=== PATIENT | female | born 1980 | race Caucasian/White ===

== ENCOUNTER → 2018-04-11 11:37 | Outpatient (CLI) | payer OTHER, SELFPAY ==
--- NOTE | 2018-04-11 | DI.US.S_ITS ---
PROCEDURE: US PELVIC COMPLETE INDICATIONS: MENSTRUAL CRAMPS TECHNIQUE: Real-time scanning was performed of the pelvic organs, with image documentation. Additional endovaginal scanning was necessary due to incomplete visualization of the adnexal and endometrial structures by transabdominal scanning. COMPARISON: None. FINDINGS: Transabdominal scanning: Limited scanning through the kidneys shows no hydronephrosis. The the kidneys measure 10.6 CM right and 11.6 CM left. No pathologic free abdominal or pelvic fluid. Endovaginal scanning: Uterus: Uterus is normal in size at 4.1 x 5.0 x 8.4 cm. The endometrium measures 8.0 mm in combined thickness. Ovaries: The right ovary measures 19 x 22 x 35 mm and contains a simple cyst measuring 12 x 13 x 13 mm. The left ovary measures 18 x 26 x 37 mm and contains a simple cyst measuring 15 x 20 x 22 mm. IMPRESSION: Normal exam with bilateral simple follicular cysts Dictated by: Edouard Shukla M.D. on 04/11/2018 at 12:56 Approved by: Edouard Shukla M.D. on 04/11/2018 at 13:01
== END ==
PROVIDERS: PCP Nurse Practitioner Family; Visit Provider Nurse Practitioner Family
DX: N94.6 Dysmenorrhea, unspecified (principal); N83.292 Other ovarian cyst, left side; N83.291 Other ovarian cyst, right side
CPT/HCPCS: 76856

== ENCOUNTER 2018-05-21 10:30 | Outpatient (RCR) | payer OTHER, SELFPAY ==
--- NOTE | 2018-04-09 15:36 | PT.OIE ---
Current Diagnoses Stiffness of unspecified hip, not elsewhere classified (04/09/18) Mixed incontinence (04/09/18) Pelvic muscle wasting (04/09/18) Past Medical History (Last Updated 04/09/18 @ 15:28 by Renetta John, PT) Thyroid activity decreased (Resolved) Provider Visit Care Team Role Provider Type AGNES Hamilton Attending Provider Advanced Systems Administrator Primary Care Provider Specialty: Medical Address: [address] [place] [address], [facility] Email: Physical Therapy Initial Evaluation PT-OP-A Visit Information Start: 04/09/18 12:30 Freq: Status: Active Protocol: Document 04/09/18 12:50 LRN (Rec: 04/09/18 14:28 LRN [id number]) Out-Patient Physical Therapy Visit Information Visit Information Visit Type Initial Evaluation Visit Note 09/08 Visit Start Time 12:50 Visit Stop Time 13:40 Total Visit Minutes 50 Visit Number 1 Number of [employer]CREW[employer] Visits 0 Evaluation Information Evaluation Date 04/09/18 PT-OP-B Current Condition Start: 04/09/18 12:30 Freq: Status: Active Protocol: Document 04/09/18 12:50 LRN (Rec: 04/09/18 14:28 LRN [id number]) Current Condition History of Current Condition Onset Date 01/14/2008 Current Complaints Urinary Leakage History of Current Condition Pt reports that after the childbirth of her 2nd child in 2007 she began to notice urinary leakage. She has 2 children with the 1st born 20/02, thus children are 10 and 11 yrs old. Both Children were vaginal births. She had 3rd or 4th degree tearing with the first child and minimal tearing with the 2nd child. Her leakage is mainly small, but she has experienced complete incontinence of urine. Prior Treatments and Tests None. Future Testing and Treatments Planned None Treatment Goals Patient/Caregiver Goals Pt goal is to gain enough control to exercise more vigorously without worrying about it. Prior Functional Status Baseline Function- ADL's Independent Baseline Function- Mobility Independent Baseline Function- Other Urinates 10+ times a day and sometimes 1 time at night. Urinary leakage 3 times per day. Drinks 4 glasses fluid per day (2 caffeinated and 2 achoholic). No urge sensation. Urinary trigger: Thinking about it. Current Functional Impairments (Reported) Functional Limitations- ADL's Leaks after urinating upon standing. Leaks after urinating upon bend over. Functional Limitations- Recreation/ Lacking core strength for Hobbies Pilates & yoga Leakage prevents her from running, doing Pilates & Yoga. Personal Factors Other Personal Factors That May Effect Works 40 hrs per week. 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 Lives [place] and works locally in [place], works 2x/month in [employer]. PT-OP-C Subjective Start: 04/09/18 12:30 Freq: Status: Active Protocol: Document 04/09/18 12:50 LRN (Rec: 04/09/18 14:28 LRN [id number]) Patient Questionnaires Pelvic Pain and Urgency/Frequency Patient Symptom Scale Pelvic Pain Score 16 PT-OP-I Pelvic Floor Start: 04/09/18 12:30 Freq: Status: Active Protocol: Document 04/09/18 12:50 LRN (Rec: 04/09/18 14:28 LRN [id number]) Pelvic Floor Assessment Urine Urinary Symptoms Prolapse Dribbling After Urination Other Urinary Symptoms Leakage with vigorous activity or ex or changing positions. Urinates 10+ times a day. Leaks after voiding when standing. Leakage Size Small Leakage Cause Exercise Other Leakage Causes Change of position from sit to stand Leaks Per Day 3 Voiding Frequency 10+ Nocturia No Urine Pad Type Panty Liner Bowel Bowel Surgery No Pelvic Clock Pelvic Clock 12-3 Atrophy Pelvic Clock 3-6 Atrophy Pelvic Clock 6-9 Atrophy Pelvic Clock 9-12 Hypertonic Tenderness Tightness Pelvic Clock Other Primary pain is at 12 O'Clock Prolapse Cystocele Grade 2 Rectocele Grade 2 Prolapse Comments Prolapse checked in Supine. Grade 3 in standing. Perineal Descent Bearing Present Contraction Ability Voluntary Contraction Weak Manual Muscle Testing Left 0 Manual Muscle Testing Right 0 Manual Muscle Testing Anterior 0 Manual Muscle Testing Posterior 1 Muscle Endurance (Seconds) 0 Comments Pelvic Floor Comments Quick Contractions: NO contraction felt. PT-OP-J Posture/Palpation/Skin Start: 04/09/18 12:30 Freq: Status: Active Protocol: Document 04/09/18 12:50 LRN (Rec: 04/09/18 14:28 LRN [id number]) Posture Evaluation Comments Posture Comments Standing: Buttock Crease is to the Right, L Iliac Crest is slightly high. Palpation Assessment Location One Palpation Location Pubic Symphysis Palpation Findings Tenderness Palpation Details Split of Pubic Symphysis is felt. Bladder appears slightly shifted left. PT-OP-K Range of Motion Start: 04/09/18 12:30 Freq: Status: Active Protocol: Document 04/09/18 12:50 LRN (Rec: 04/09/18 14:28 LRN [id number]) Hip Goniometric Range of Motion Hip ROM Limitations Hip ROM Limitations Soft Tissue Tightness Comments In Supine: PSLR Bilaterally is 70 deg's. IR PROM Bilaterally is 40 deg' s. ER PROM is 60 deg's left, 65 deg's right. PT-OP-M Strength Start: 04/09/18 12:30 Freq: Status: Active Protocol: Document 04/09/18 12:50 LRN (Rec: 04/09/18 14:28 LRN [id number]) Trunk Strength Trunk Manual Muscle Testing Core Stabilization Pt not able to maintain core stability with Bilateral LE MMT. Hip Strength Hip Manual Muscle Testing Right Flexion (L2) 3- Fair- Extension (S1) 5 Normal Abduction 5 Normal Adduction 4 Good External Rotation 5 Normal Internal Rotation 3 Fair Left Flexion (L2) 3- Fair- Extension (S1) 5 Normal Abduction 3 Fair External Rotation 5 Normal Internal Rotation 3 Fair PT-OP-Q Treatments Start: 04/09/18 12:30 Freq: Status: Active Protocol: Document 04/09/18 12:50 LRN (Rec: 04/09/18 14:28 LRN [id number]) Therapeutic Exercises Supine Exercises 1 Supine Exercise Name Kegel: Quick and Long Holds Reps/Minutes 5' Comments With Training Self-Care/Home Management Treatment Education Patient Education Home Exercise Program Activities Self-Care/Home Management Activities Issued and reviewed Bladder Diary for pt to complete by next visit. Issued and reviewed Kegel ex for Quick Flicks and Long Holds for HEP. PT-OP-T Assessment and Plan Start: 04/09/18 12:30 Freq: Status: Active Protocol: Document 04/09/18 12:50 LRN (Rec: 04/09/18 14:28 LRN [id number]) Physical Therapy Assessment Rehab Potential Rehabilitation Potential Good Evaluation Complexity Number of Personal Factors/Comorbidities 1-2 Number of Body Systems Impaired 1-2 Clinical Presentation at Evaluation Stable Impairments Impairments Activity Tolerance Functional Activities Functional Mobility Sensation Soft Tissue Mobility Strength Goals Three Impairment Pt lacks appropriate HEP Basket Operator Goal (LTG) PT will be educated and independent in a self care/ home ex program. LTG Duration 06/18/18 (10 weeks - 6 visits allowed) Two Impairment Pt unable to maintain a pevlic floor contraction for greater than 1 sec. Chcf Goal (LTG) Pt will be able to maintain a PF contraction to allow pt to return to exercise. LTG Duration 06/04/18 (8 weeks - 6 visits allowed) One Impairment Pt unable to perform a Quick PF contraction Short Term Goal (STG) Pt will be able to perform a Quick Flick contraction of her superficial PF muscles in order to delay urination and reduce daily urinary leakage. STG Duration 06/18/18 (10 weeks - 6 visits allowed) Assessment Summary Assessment Pt presents with a Grade 2 Cystocele and Rectocele identified in the supine position. She has weakness of her Pelvic Floor (PF) with minimal anterior PF contraction and no visible posterior PF contraction on observation. Internal assessment reveals her PF contraction is sluggish or non -existent, indicating weakness or poor awareness of how to perform a PF contraction. The pt would benefit from use of a home E-Stim unit for training and strengthening of her PF since her therapy is restricted to 6 visits at this time. She has tenderness internally in the PF clock area of 9 to 12 O'clock. She has soft tissue tightness on the left side greater than the right. She also shows hip and core weakness that hinders her ability to have pelvic stability and may hinder her ability to strengthen her PF; therefore the patient's rehabilitation may take an extended period of time to achieve pelvic and core stability. Additionally, there may be breaks in therapy due to summer vacation schedules. Physical Therapy Plan Frequency and Duration Frequency of Treatment 1x/Week Plan of Care Start Date 04/09/18 Plan of Care End Date 07/03/18 Therapeutic Interventions Therapeutic Interventions Home Exercise Program Manual Therapy Neuromuscular Re-education Patient/Caregiver Education Self-Care/Home Management Soft Tissue Mobilization Taping Therapeutic Activities Therapeutic Exercises Modalities Electric Stimulation Next Visit Focus/Plan Next Note Type Treatment Note Next Visit Plan Review Bladder Diary, EMG Biofeedback and E-Stim ( recommend home E-Stim Unit), Start LE Roll in/outs, Review Anatomy.
--- NOTE | 2018-04-09 16:53 | PT.OPPOC ---
Current Diagnoses Stiffness of unspecified hip, not elsewhere classified (04/09/18) Mixed incontinence (04/09/18) Pelvic muscle wasting (04/09/18) Provider Visit Care Team Role Provider Type AGNES Hamilton Attending Provider Advanced Division Sales Manager Primary Care Provider Specialty: Medical Address: [address] [place] [address], [id number] Email: Plan Of Care PT-OP-T Assessment and Plan Start: 04/09/18 12:30 Freq: Status: Active Protocol: Document 04/09/18 12:50 LRN (Rec: 04/09/18 14:28 LRN [id number]) Physical Therapy Assessment Rehab Potential Rehabilitation Potential Good Evaluation Complexity Number of Personal Factors/Comorbidities 1-2 Number of Body Systems Impaired 1-2 Clinical Presentation at Evaluation Stable Impairments Impairments Activity Tolerance Functional Activities Functional Mobility Sensation Soft Tissue Mobility Strength Goals Three Impairment Pt lacks appropriate HEP Fci Goal (LTG) PT will be educated and independent in a self care/ home ex program. LTG Duration 06/18/18 (10 weeks - 6 visits allowed) Two Impairment Pt unable to maintain a pevlic floor contraction for greater than 1 sec. Special Trackwork Blacksmith Goal (LTG) Pt will be able to maintain a PF contraction to allow pt to return to exercise. LTG Duration 06/04/18 (8 weeks - 6 visits allowed) One Impairment Pt unable to perform a Quick PF contraction Short Term Goal (STG) Pt will be able to perform a Quick Flick contraction of her superficial PF muscles in order to delay urination and reduce daily urinary leakage. STG Duration 06/18/18 (10 weeks - 6 visits allowed) Assessment Summary Assessment Pt presents with a Grade 2 Cystocele and Rectocele identified in the supine position. She has weakness of her Pelvic Floor (PF) with minimal anterior PF contraction and no visible posterior PF contraction on observation. Internal assessment reveals her PF contraction is sluggish or non -existent, indicating weakness or poor awareness of how to perform a PF contraction. The pt would benefit from use of a home E-Stim unit for training and strengthening of her PF since her therapy is restricted to 6 visits at this time. She has tenderness internally in the PF clock area of 9 to 12 O'clock. She has soft tissue tightness on the left side greater than the right. She also shows hip and core weakness that hinders her ability to have pelvic stability and may hinder her ability to strengthen her PF; therefore the patient's rehabilitation may take an extended period of time to achieve pelvic and core stability. Additionally, there may be breaks in therapy due to summer vacation schedules. Physical Therapy Plan Frequency and Duration Frequency of Treatment 1x/Week Plan of Care Start Date 04/09/18 Plan of Care End Date 07/03/18 Therapeutic Interventions Therapeutic Interventions Home Exercise Program Manual Therapy Neuromuscular Re-education Patient/Caregiver Education Self-Care/Home Management Soft Tissue Mobilization Taping Therapeutic Activities Therapeutic Exercises Modalities Electric Stimulation Next Visit Focus/Plan Next Note Type Treatment Note Next Visit Plan Review Bladder Diary, EMG Biofeedback and E-Stim ( recommend home E-Stim Unit), Start LE Roll in/outs, Review Anatomy. Plan of Care Dates Plan of Care Start Date 04/09/18 Plan of Care End Date 07/03/18 Please Sign and Return: I have reviewed this Plan of Care and certify that the skilled therapy services above are required to meet the patient?s needs. Physician Signature Date Printed Name and Credentials Clinical Instructor Signature Printed Name and Credentials
--- NOTE | 2018-04-16 12:10 | PT.OTN ---
Current Diagnoses Mixed incontinence (04/16/18) Physical Therapy Treatment Note PT-OP-A Visit Information Start: 04/09/18 12:30 Freq: Status: Active Protocol: Document 04/16/18 10:51 LRN (Rec: 04/16/18 12:03 LRN [id number]) Out-Patient Physical Therapy Visit Information Visit Information Visit Type Treatment Note Visit Note 6 Visit Start Time 10:51 Visit Stop Time 11:40 Total Visit Minutes 49 Visit Number 2 Number of DOCTOR OF NATUROPATHIC MEDICINE Visits 0 PT-OP-B Current Condition Start: 04/09/18 12:30 Freq: Status: Active Protocol: Document 04/09/18 12:50 LRN (Rec: 04/09/18 14:28 LRN [id number]) Current Condition History of Current Condition Onset Date 01/14/2008 Current Complaints Urinary Leakage History of Current Condition Pt reports that after the childbirth of her 2nd child in 2007 she began to notice urinary leakage. She has 2 children with the 1st born 20/02, thus children are 10 and 11 yrs old. Both Children were vaginal births. She had 3rd or 4th degree tearing with the first child and minimal tearing with the 2nd child. Her leakage is mainly small, but she has experienced complete incontinence of urine. Prior Treatments and Tests None. Future Testing and Treatments Planned None Treatment Goals Patient/Caregiver Goals Pt goal is to gain enough control to exercise more vigorously without worrying about it. Prior Functional Status Baseline Function- ADL's Independent Baseline Function- Mobility Independent Baseline Function- Other Urinates 10+ times a day and sometimes 1 time at night. Urinary leakage 3 times per day. Drinks 4 glasses fluid per day (2 caffeinated and 2 achoholic). No urge sensation. Urinary trigger: Thinking about it. Current Functional Impairments (Reported) Functional Limitations- ADL's Leaks after urinating upon standing. Leaks after urinating upon bend over. Functional Limitations- Recreation/ Lacking core strength for Hobbies Pilates & yoga Leakage prevents her from running, doing Pilates & Yoga. Personal Factors Other Personal Factors That May Effect Works 40 hrs per week. 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 Lives [place] and works locally in [place], works 2x/month in [employer]. PT-OP-C Subjective Start: 04/09/18 12:30 Freq: Status: Active Protocol: Document 04/16/18 10:51 LRN (Rec: 04/16/18 12:03 LRN [id number]) OP-PT Subjective Patient Comments Patient Comments Over estimated how many times a day she was urinating, per bladder diary she was urinating 6 times per day. Not sure if doing Kegels properly and unable to hold contraction. PT-OP-I Pelvic Floor Start: 04/09/18 12:30 Freq: Status: Active Protocol: Document 04/09/18 12:50 LRN (Rec: 04/09/18 14:28 LRN [id number]) Pelvic Floor Assessment Urine Urinary Symptoms Prolapse Dribbling After Urination Other Urinary Symptoms Leakage with vigorous activity or ex or changing positions. Urinates 10+ times a day. Leaks after voiding when standing. Leakage Size Small Leakage Cause Exercise Other Leakage Causes Change of position from sit to stand Leaks Per Day 3 Voiding Frequency 10+ Nocturia No Urine Pad Type Panty Liner Bowel Bowel Surgery No Pelvic Clock Pelvic Clock 12-3 Atrophy Pelvic Clock 3-6 Atrophy Pelvic Clock 6-9 Atrophy Pelvic Clock 9-12 Hypertonic Tenderness Tightness Pelvic Clock Other Primary pain is at 12 O'Clock Prolapse Cystocele Grade 2 Rectocele Grade 2 Prolapse Comments Prolapse checked in Supine. Grade 3 in standing. Perineal Descent Bearing Present Contraction Ability Voluntary Contraction Weak Manual Muscle Testing Left 0 Manual Muscle Testing Right 0 Manual Muscle Testing Anterior 0 Manual Muscle Testing Posterior 1 Muscle Endurance (Seconds) 0 Comments Pelvic Floor Comments Quick Contractions: NO contraction felt. PT-OP-J Posture/Palpation/Skin Start: 04/09/18 12:30 Freq: Status: Active Protocol: Document 04/09/18 12:50 LRN (Rec: 04/09/18 14:28 LRN [id number]) Posture Evaluation Comments Posture Comments Standing: Buttock Crease is to the Right, L Iliac Crest is slightly high. Palpation Assessment Location One Palpation Location Pubic Symphysis Palpation Findings Tenderness Palpation Details Split of Pubic Symphysis is felt. Bladder appears slightly shifted left. PT-OP-K Range of Motion Start: 04/09/18 12:30 Freq: Status: Active Protocol: Document 04/09/18 12:50 LRN (Rec: 04/09/18 14:28 LRN [id number]) Hip Goniometric Range of Motion Hip ROM Limitations Hip ROM Limitations Soft Tissue Tightness Comments In Supine: PSLR Bilaterally is 70 deg's. IR PROM Bilaterally is 40 deg' s. ER PROM is 60 deg's left, 65 deg's right. PT-OP-M Strength Start: 04/09/18 12:30 Freq: Status: Active Protocol: Document 04/09/18 12:50 LRN (Rec: 04/09/18 14:28 LRN [id number]) Trunk Strength Trunk Manual Muscle Testing Core Stabilization Pt not able to maintain core stability with Bilateral LE MMT. Hip Strength Hip Manual Muscle Testing Right Flexion (L2) 3- Fair- Extension (S1) 5 Normal Abduction 5 Normal Adduction 4 Good External Rotation 5 Normal Internal Rotation 3 Fair Left Flexion (L2) 3- Fair- Extension (S1) 5 Normal Abduction 3 Fair External Rotation 5 Normal Internal Rotation 3 Fair PT-OP-Q Treatments Start: 04/09/18 12:30 Freq: Status: Active Protocol: Document 04/16/18 10:51 LRN (Rec: 04/16/18 12:03 LRN [id number]) Therapeutic Exercises Supine Exercises 2 Supine Exercise Name Deep Breath with LE Roll in/ out Reps/Minutes 10x Comments Extra time for training 1 Supine Exercise Name Kegel: Quick and Long Holds Reps/Minutes 2' Comments On Bolster for Drawing up of electrode Neuro Re-Education Treatment Other Activities 2 Details E-Stim for neuro-reducation of PF contraction Reps/Duration 10' Comments Started continuous: intensity tolerance-7. 10:10 > 5:5: intensity tolerance max-12. 1 Details EMG Biofeedback for neuroreeducation Reps/Duration 25 Comments Working Quick Flicks and Long holds. Self-Care/Home Management Treatment Education Patient Education Home Exercise Program Activities Self-Care/Home Management Activities Issued and reviewed LE Roll in /outs with Lev 2 T-Band issued . I/S ptx2 in progression of the ex (ex, ex w/resistance, ex w/resistance and PF contraction). PT-OP-R Modalities Start: 04/09/18 12:30 Freq: Status: Active Protocol: Document 04/16/18 10:51 LRN (Rec: 04/16/18 12:08 LRN [id number]) Electric Stimulation Electric Stimulation Other Body Location PF Duration (Minutes) 10 Intensity 12 Patient Position Hooklying Comments PF E-Stim device (Pathway STM- 10) used for neuromuscular re- education for awareness of PF contraction sensation. PT-OP-T Assessment and Plan Start: 04/09/18 12:30 Freq: Status: Active Protocol: Document 04/16/18 10:51 LRN (Rec: 04/16/18 12:03 LRN [id number]) Physical Therapy Assessment Goals Three Impairment Pt lacks appropriate HEP Mcfp Goal (LTG) PT will be educated and independent in a self care/ home ex program. LTG Duration 06/18/18 (10 weeks - 6 visits allowed) Two Impairment Pt unable to maintain a pevlic floor contraction for greater than 1 sec. Curb Machine Operator Goal (LTG) Pt will be able to maintain a PF contraction to allow pt to return to exercise. LTG Duration 06/04/18 (8 weeks - 6 visits allowed) One Impairment Pt unable to perform a Quick PF contraction Short Term Goal (STG) Pt will be able to perform a Quick Flick contraction of her superficial PF muscles in order to delay urination and reduce daily urinary leakage. STG Duration 06/18/18 (10 weeks - 6 visits allowed) Mcfp Goal (LTG) uikQ Assessment Summary Assessment Resting tone: 1.1 microVolts ( mV). Quick Flicks (2:2): Avg Work is 2.7 mV, Avg Rest is 2.0 mV. Long Holds (10:10): Avg Work is 3.1 mV, Avg Rest is 1.8 mV. Pt is weak with PF contractions. 2 to ~7reps with Quick Flics before decrease in strength. Long Holds shows decreased strength after 2 reps. Resting tone is low at 1.1mV. Pt uses hold of breath to maintain a PF contraction. Pt was unable to feel a PF contraction with use of E-Stim, possibly due to low intensity (12). Physical Therapy Plan Next Visit Focus/Plan Next Note Type Treatment Note Next Visit Plan Review Bladder Diary, EMG Biofeedback and E-Stim ( discuss as home E-Stim Unit), Review Anatomy is needed. Start training for delay technique.
--- NOTE | 2018-05-21 11:15 | PT.OTN ---
Current Diagnoses Mixed incontinence (05/21/18) Physical Therapy Treatment Note PT-OP-A Visit Information Start: 04/09/18 12:30 Freq: Status: Active Protocol: Document 05/21/18 10:31 LRN (Rec: 05/21/18 11:15 LRN [id number]) Out-Patient Physical Therapy Visit Information Visit Information Visit Type Treatment Note Visit Note 3/6 Visit Start Time 10:31 Visit Stop Time 10:56 Total Visit Minutes 25 Visit Number 3 Number of RISK CONTROL SPECIALIST Visits 0 PT-OP-B Current Condition Start: 04/09/18 12:30 Freq: Status: Active Protocol: Document 04/09/18 12:50 LRN (Rec: 04/09/18 14:28 LRN [id number]) Current Condition History of Current Condition Onset Date 01/14/2008 Current Complaints Urinary Leakage History of Current Condition Pt reports that after the childbirth of her 2nd child in 2007 she began to notice urinary leakage. She has 2 children with the 1st born 20/02, thus children are 10 and 11 yrs old. Both Children were vaginal births. She had 3rd or 4th degree tearing with the first child and minimal tearing with the 2nd child. Her leakage is mainly small, but she has experienced complete incontinence of urine. Prior Treatments and Tests None. Future Testing and Treatments Planned None Treatment Goals Patient/Caregiver Goals Pt goal is to gain enough control to exercise more vigorously without worrying about it. Prior Functional Status Baseline Function- ADL's Independent Baseline Function- Mobility Independent Baseline Function- Other Urinates 10+ times a day and sometimes 1 time at night. Urinary leakage 3 times per day. Drinks 4 glasses fluid per day (2 caffeinated and 2 achoholic). No urge sensation. Urinary trigger: Thinking about it. Current Functional Impairments (Reported) Functional Limitations- ADL's Leaks after urinating upon standing. Leaks after urinating upon bend over. Functional Limitations- Recreation/ Lacking core strength for Hobbies Pilates & yoga Leakage prevents her from running, doing Pilates & Yoga. Personal Factors Other Personal Factors That May Effect Works 40 hrs per week. 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 Lives [employer] and works locally in [place], works 2x/month in [email or web address]. PT-OP-C Subjective Start: 04/09/18 12:30 Freq: Status: Active Protocol: Document 05/21/18 10:31 LRN (Rec: 05/21/18 11:15 LRN [id number]) OP-PT Subjective Patient Comments Patient Comments States she is on her period, can't use vaginal electrode. PT-OP-I Pelvic Floor Start: 04/09/18 12:30 Freq: Status: Active Protocol: Document 04/09/18 12:50 LRN (Rec: 04/09/18 14:28 LRN [id number]) Pelvic Floor Assessment Urine Urinary Symptoms Prolapse Dribbling After Urination Other Urinary Symptoms Leakage with vigorous activity or ex or changing positions. Urinates 10+ times a day. Leaks after voiding when standing. Leakage Size Small Leakage Cause Exercise Other Leakage Causes Change of position from sit to stand Leaks Per Day 3 Voiding Frequency 10+ Nocturia No Urine Pad Type Panty Liner Bowel Bowel Surgery No Pelvic Clock Pelvic Clock 12-3 Atrophy Pelvic Clock 3-6 Atrophy Pelvic Clock 6-9 Atrophy Pelvic Clock 9-12 Hypertonic Tenderness Tightness Pelvic Clock Other Primary pain is at 12 O'Clock Prolapse Cystocele Grade 2 Rectocele Grade 2 Prolapse Comments Prolapse checked in Supine. Grade 3 in standing. Perineal Descent Bearing Present Contraction Ability Voluntary Contraction Weak Manual Muscle Testing Left 0 Manual Muscle Testing Right 0 Manual Muscle Testing Anterior 0 Manual Muscle Testing Posterior 1 Muscle Endurance (Seconds) 0 Comments Pelvic Floor Comments Quick Contractions: NO contraction felt. PT-OP-J Posture/Palpation/Skin Start: 04/09/18 12:30 Freq: Status: Active Protocol: Document 04/09/18 12:50 LRN (Rec: 04/09/18 14:28 LRN [id number]) Posture Evaluation Comments Posture Comments Standing: Buttock Crease is to the Right, L Iliac Crest is slightly high. Palpation Assessment Location One Palpation Location Pubic Symphysis Palpation Findings Tenderness Palpation Details Split of Pubic Symphysis is felt. Bladder appears slightly shifted left. PT-OP-K Range of Motion Start: 04/09/18 12:30 Freq: Status: Active Protocol: Document 04/09/18 12:50 LRN (Rec: 04/09/18 14:28 LRN [id number]) Hip Goniometric Range of Motion Hip ROM Limitations Hip ROM Limitations Soft Tissue Tightness Comments In Supine: PSLR Bilaterally is 70 deg's. IR PROM Bilaterally is 40 deg' s. ER PROM is 60 deg's left, 65 deg's right. PT-OP-M Strength Start: 04/09/18 12:30 Freq: Status: Active Protocol: Document 04/09/18 12:50 LRN (Rec: 04/09/18 14:28 LRN [id number]) Trunk Strength Trunk Manual Muscle Testing Core Stabilization Pt not able to maintain core stability with Bilateral LE MMT. Hip Strength Hip Manual Muscle Testing Right Flexion (L2) 3- Fair- Extension (S1) 5 Normal Abduction 5 Normal Adduction 4 Good External Rotation 5 Normal Internal Rotation 3 Fair Left Flexion (L2) 3- Fair- Extension (S1) 5 Normal Abduction 3 Fair External Rotation 5 Normal Internal Rotation 3 Fair PT-OP-Q Treatments Start: 04/09/18 12:30 Freq: Status: Active Protocol: Document 05/21/18 10:31 LRN (Rec: 05/21/18 11:15 LRN [id number]) Therapeutic Exercises Supine Exercises Kegel ex Supine Exercise Name w/Bridge/Breathing Comments Pt difficulty with breathing during ex, very shallow 2 Supine Exercise Name Deep Breath with LE Roll in/ out Reps/Minutes 10x Comments Extra time for training Sitting Exercises Long Hold Sitting Exercise Name During Roll in/out Resistance Gr TB & Pillow Quick Flick Sitting Exercise Name W/Hip ER & Hip IR Resistance Gr TB & Pillow Self-Care/Home Management Treatment Education Patient Education Home Exercise Program Activities Self-Care/Home Management Activities Issued and reviewed Anatomy of pelvis and discussed involvement with exercise. Issued and reviewed sitting PF ex with breathing & Abdominal tightening. PT-OP-R Modalities Start: 04/09/18 12:30 Freq: Status: Active Protocol: Document 04/16/18 10:51 LRN (Rec: 04/16/18 12:08 LRN [id number]) Electric Stimulation Electric Stimulation Other Body Location PF Duration (Minutes) 10 Intensity 12 Patient Position Hooklying Comments PF E-Stim device (Pathway STM- 10) used for neuromuscular re- education for awareness of PF contraction sensation. PT-OP-T Assessment and Plan Start: 04/09/18 12:30 Freq: Status: Active Protocol: Document 05/21/18 10:31 LRN (Rec: 05/21/18 11:15 LRN [id number]) Physical Therapy Assessment Impairments Impairments Activity Tolerance Functional Activities Functional Mobility Sensation Soft Tissue Mobility Strength Goals Three Impairment Pt lacks appropriate HEP Video Camera Operator Goal (LTG) PT will be educated and independent in a self care/ home ex program. LTG Duration 06/18/18 (10 weeks - 6 visits allowed) Two Impairment Pt unable to maintain a pevlic floor contraction for greater than 1 sec. Video Camera Operator Goal (LTG) Pt will be able to maintain a PF contraction to allow pt to return to exercise. LTG Duration 06/04/18 (8 weeks - 6 visits allowed) One Impairment Pt unable to perform a Quick PF contraction Short Term Goal (STG) Pt will be able to perform a Quick Flick contraction of her superficial PF muscles in order to delay urination and reduce daily urinary leakage. STG Duration 06/18/18 (10 weeks - 6 visits allowed) Assessment Summary Assessment No bladder diary. Pt chose to have reduced therapy time due to daughter with her and pt on her menstral cycle. Pt has difficulty with deep breathing, still very shallow and not well coordinated with LE movement. Pt appears to have a good understanding of PF anatomy and concept of PF myriam like an elevator. Physical Therapy Plan Frequency and Duration Frequency of Treatment 1x/Week Plan of Care Start Date 04/09/18 Plan of Care End Date 07/03/18 Therapeutic Interventions Therapeutic Interventions Home Exercise Program Manual Therapy Neuromuscular Re-education Patient/Caregiver Education Self-Care/Home Management Soft Tissue Mobilization Taping Therapeutic Activities Therapeutic Exercises Modalities Electric Stimulation Next Visit Focus/Plan Next Note Type Treatment Note Next Visit Plan Review Bladder Diary, start training for delay technique. EMG Biofeedback and E-Stim ( discuss as home E-Stim Unit),
--- NOTE | 2018-06-18 08:59 | PT.OPDS ---
Current Diagnoses Mixed incontinence (05/21/18) Provider Visit Care Team Role Provider Type AGNES Hamilton Attending Provider Advanced [employer] Primary Care Provider Specialty: Medical Address: [address] [place] [address], [id number] Email: Visit Number Visit Number 3 Discharge Summary Patient/Caregiver Goals Pt goal is to gain enough control to exercise more vigorously without worrying about it. PT-OP-T Assessment and Plan Start: 04/09/18 12:30 Freq: Status: Active Protocol: Document 06/18/18 08:53 LRN (Rec: 06/18/18 08:59 LRN [id number]) Physical Therapy Assessment Goals Three Impairment Pt lacks appropriate HEP Security And Privacy Consultant Goal (LTG) PT will be educated and independent in a self care/ home ex program. LTG Duration Goal partially met. Pt started on HEP. Two Impairment Pt unable to maintain a pevlic floor contraction for greater than 1 sec. Alf Goal (LTG) Pt will be able to maintain a PF contraction to allow pt to return to exercise. LTG Duration Goal not met. One Impairment Pt unable to perform a Quick PF contraction Short Term Goal (STG) Pt will be able to perform a Quick Flick contraction of her superficial PF muscles in order to delay urination and reduce daily urinary leakage. STG Duration Goal not met. Assessment Summary Assessment Pt was seen for 2 therapy appointments with the last on 05/21/18. She cancelled her remaining 7 visits. Pt was unavailable for final assessment, but had not met her goals on her last attended appointment. The pt is being discharged for lack of attendance. Physical Therapy Plan Discharge Physical Therapy Discharge Reasons No Longer Attending PT Discharge Comments Pt was unavailable for final assessment and was last seen .
== END 2018-08-28 14:59 ==
LOC: PHYS 10:30
PROVIDERS: PCP Nurse Practitioner Family; Visit Provider Nurse Practitioner Family
DX: N39.46 Mixed incontinence (principal)
CPT/HCPCS: 97110; 97112; 97161; 97535

== ENCOUNTER → 2018-10-03 10:40 | Outpatient (CLI) | payer OTHER, SELFPAY ==
--- NOTE | 2018-10-03 | DI.MG.S_ITS ---
BILATERAL DIGITAL SCREENING MAMMOGRAM 3D/2D WITH CAD: 10/03/2018 CLINICAL: Baseline exam. Routine screening. No prior exams were available for comparison. The tissue of both breasts is heterogeneously dense. This may lower the sensitivity of mammography. Current study was also evaluated with a Computer Aided Detection (CAD) system. There are benign intramammary nodes in both breasts. No significant masses, calcifications, or other findings are seen in either breast. IMPRESSION: There is no mammographic evidence of malignancy. A 1 year screening mammogram is recommended. This exam was interpreted at Station ID: [id number]. NOTE: For mammograms, a report in lay terms will be sent to the patient. Approximately 15% of breast malignancies will not be visualized mammographically. In the management of a palpable breast mass, a negative mammogram must not discourage biopsy of a clinically suspicious lesion. Electronically Signed By: Pascual sevilla/vamshi:10/03/2018 17:52:53 letter sent: Normal Exam ACR BI-RADS Category 2: Benign Finding(s) 3342F
== END ==
PROVIDERS: PCP Nurse Practitioner Family; Visit Provider Nurse Practitioner Family
DX: Z12.31 Encounter for screening mammogram for malignant neoplasm of breast (principal)
CPT/HCPCS: 77063; 77067

== ENCOUNTER → 2021-08-16 11:37 | Outpatient (CLI) | payer OTHER, SELFPAY ==
[2021-08-16 20:26] LABS: Vitamin B12 566 pg/mL (239-931)
[2021-08-19 12:12] LABS: Methylmalonic Acid,Serum 114 nmol/L (0-378)
== END ==
PROVIDERS: PCP Family Medicine; Visit Provider Psychiatry & Neurology Neurology
DX: R20.8 Other disturbances of skin sensation (principal)
CPT/HCPCS: 82607; 83921

== ENCOUNTER → 2021-09-09 08:35 | Outpatient (CLI) | payer OTHER, SELFPAY ==
[2021-09-09 20:52] LABS: COVID19 - ORCAS (NP or Nasal) Negative (Negative)
== END ==
PROVIDERS: PCP Family Medicine; Visit Provider Physician Assistant Medical
DX: Z20.822 Contact with and (suspected) exposure to COVID-19 (principal)
CPT/HCPCS: U0003

== ENCOUNTER → 2022-02-14 15:40 | Outpatient (CLI) | payer OTHER, SELFPAY | PROVIDERS: PCP Physician Assistant Medical; Visit Provider Physician Assistant | DX: T81.49XA Infection following a procedure, other surgical site, initial encounter (principal) | CPT/HCPCS: 87070; 87075; 87077; 87147; 87186; 87205 ==

== ENCOUNTER → 2022-03-07 12:18 | Outpatient (CLI) | payer OTHER, SELFPAY ==
--- NOTE | 2022-03-07 | DI.CT.S_ITS ---
PROCEDURE: CT HEAD/BRAIN WO CON INDICATIONS: Cerebral aneurysm, nonruptured TECHNIQUE: Noncontrast 4.5 mm thick angled axial sections acquired from the foramen magnum to the vertex, with coronal and sagittal reformats. For radiation dose reduction, the following was used: automated exposure control, adjustment of mA and/or kV according to patient size. COMPARISON: None. FINDINGS: Image quality: Excellent. CSF spaces: Basal cisterns are patent. No extra-axial fluid collections. Ventricles are normal in size and shape. Brain: Left cerebral aneurysm clip noted in the expected region of the origin of the left ophthalmic artery. No midline shift. No intracranial masses or hemorrhage. Stover-white matter interface is normal. Skull and face: Postsurgical changes compatible with pterional craniotomy. visualized facial bones are intact, without suspicious lesions. Sinuses: Visualized sinuses and mastoids are clear. IMPRESSION: Status post cerebral artery aneurysm clipping. No acute intracranial disease process. Dictated by: Kristal Tran MD, PhD on 03/07/2022 at 13:32 Approved by: Kristal Tran MD, PhD on 03/07/2022 at 13:36
== END ==
PROVIDERS: PCP Physician Assistant Medical; Referring Provider Physician Assistant; Visit Provider Physician Assistant
DX: I67.1 Cerebral aneurysm, nonruptured (principal)
CPT/HCPCS: 70450

== ENCOUNTER → 2022-08-15 08:31 | Outpatient (CLI) | payer OTHER, SELFPAY ==
[2022-08-15 20:08] LABS: COVID19 - ORCAS (NP or Nasal) Negative (Negative)
== END ==
PROVIDERS: PCP Physician Assistant Medical; Visit Provider Physician Assistant
DX: Z01.812 Encounter for preprocedural laboratory examination (principal); Z20.822 Contact with and (suspected) exposure to COVID-19
CPT/HCPCS: U0003

== ENCOUNTER → 2022-08-16 07:35 | Outpatient (CLI) | payer OTHER, SELFPAY ==
--- NOTE | 2022-08-16 18:38 | DI.NM.S_ITS ---
DATE OF SERVICE: PROCEDURE: Exercise stress test. INDICATION: Premature ventricular contractions, syncope. CARDIAC STRESS: The patient underwent exercise stress test under the supervision of an attending staff. She walked on Jaiden protocol for 6 minutes and 23 seconds, achieved maximum heart rate of 171, which was 97 percent of target heart rate. Baseline blood pressure 115/78 and peak blood pressure 160/90 mmHg. Baseline rhythm was sinus with heart rate about 86 beats per minute. During exercise, there were no convincing ischemic changes seen. No significant arrhythmias seen. There was a late recovery. After 5 minutes in recovery, heart rate was about 105 beats per minute. No chest pain, however had shortness of breath. The patient had difficulty keeping up with treadmill. MONY +24 percent. Achieved 7 METs of workload. CONCLUSION: Exercise stress test is negative for inducible ischemia. No significant arrhythmias seen. Diminished exercise tolerance. Functional aerobic impairment +24 percent. Prolonged recovery. She had difficulty keeping up with treadmill, as well as had shortness of breath. In absence of ischemia, significant arrhythmias, and normal blood pressure response, overall low-risk exercise stress test. Correlate clinically. Tonja Meredith - LISY/rodolfo/THOMAS doc#: [id number]/job#: [id number] dd: 08/16/2022 17:12:00 dt: 08/16/2022 18:07:00 DICTATING /COPIES TO: Minoo Senior MD COPIES MNE: EMILY;
== END ==
PROVIDERS: PCP Physician Assistant Medical; Referring Provider Nuclear Medicine Nuclear Cardiology; Visit Provider Nuclear Medicine Nuclear Cardiology
DX: R55 Syncope and collapse (principal); I49.3 Ventricular premature depolarization
CPT/HCPCS: 93017

== ENCOUNTER 2023-10-17 18:25 | Emergency (ER) | payer OTHER, SELFPAY ==
[2023-10-17] VITALS (11 sets, daily range): BP systolic 105–139; BP diastolic 63–92; PULSE 68–101; RESP 18; TEMP 36.8; O2SAT 97–100; BMI 29.9
--- NOTE | 2023-10-17 19:44 | DI.CT.S_ITS ---
PROCEDURE: CT ABDOMEN PELVIS W CON INDICATIONS: rectocele surgery 09/20/23, possible hematoma or infection post op TECHNIQUE: After the administration of intravenous contrast, axial sections acquired from the lung bases to the pubic symphysis. Coronal and sagittal reformats were performed. For radiation dose reduction, the following was used: automated exposure control, adjustment of mA and/or kV according to patient size. COMPARISON: None. FINDINGS: Image quality: Diagnostic. Lower Chest: No significant findings. ABDOMEN: Liver: Hepatic simple cysts and additional subcentimeter hypodensities, which are too small to characterize, probable cysts versus hemangiomas.. Gallbladder: No radiopaque gallstones or wall thickening. Biliary ducts: No biliary dilation. Pancreas: No ductal dilation. Spleen: Size is within normal limits. Adrenal Glands: No adrenal nodules. Kidneys and Ureters: No hydronephrosis. No solid mass. No complex renal cystic lesion which requires follow up. Stomach and Bowel: Normal colonic caliber, without significant wall thickening. Normal caliber appendix in the right lower quadrant. Peritoneum: No abnormal intraperitoneal fluid. No free air. Ventral Wall: No significant ventral hernia. Abdominal Nodes: No retroperitoneal or mesenteric adenopathy by size criteria. Vessels: Aorta and inferior vena cava are normal in size. PELVIS: Pelvic Organs: Left adnexal simple appearing cystic structure measuring 3.5 cm (69). Bladder: No bladder wall thickening, accounting for underdistention. Pelvic Nodes: No enlarged lymph nodes. Miscellaneous: Along the right pelvic sidewall at the level of the vaginal cuff there is a fluid attenuating structure measuring 3.9 by 2.9 by 2.9 cm (AP by TR by cc, 2/81, 5/). No subcutaneous gas. Bones: No acute or suspicious osseous abnormality. IMPRESSION: Right lower pelvic sidewall fluid attenuating collection at the level of the vaginal cuff measuring up to 3.9 cm likely sequela of recent rectocele surgery. Finding is favored to represent postoperative seroma given lack of rim enhancement and presence of gas, however sterility cannot be fully assessed Approved by: Gema Quintanilla M.D. on 10/17/2023 at 21:17 . Simple appearing left adnexal cyst measuring up to 3.5 cm.
[2023-10-17 19:56] LABS: Amorphous Sediment Urine 1+; Bacteria Urine Moderate (10-30); Culture Indicated Urine Specimen Cultured; RBC Urine 5-10/HPF (0-5/HPF); Squamous Epithelial Cell Urine 5-10 /HPF (0-5/HPF); Urine Volume 10mL (spun); WBC Urine 10-30/HPF (0-5/HPF)
[2023-10-17] MEDS: ONDANSETRON 4 MG/2 ML INJ IV (20:28)
[2023-10-17] MEDS: KETOROLAC 30 MG/ML VIAL 15 MG IV (20:28)
[2023-10-17 20:40] LABS: Add Manual Diff / Slide Review NO; Basophils Absolute Auto 100 /uL (0-100); Basophils Percent Auto 0.7 % (0-2); Eosinophils Absolute Auto 400 /uL (0-450); Eosinophils Percent Auto 3.9 % (2-4); Hematocrit 38.4 % (36-46); Hemoglobin 12.9 g/dL (12.0-16.0); Lymphocytes Absolute Auto 2500 /uL (1100-4500); Lymphocytes Percent Auto 27.8 % (25-40); Mean Corpuscular HGB Conc 33.5 % (30-36); Mean Corpuscular Hemoglobin 31.4 PG (26-34); Mean Corpuscular Volume 93.6 fL (80-100); Monocytes Absolute Auto 800 /uL (0-900); Monocytes Percent Auto 9.3 % (3-14); Neutrophils Absolute Auto 5300 /uL (1500-7000); Neutrophils Percent Auto 58.3 % (50-75); Platelet Count 251 X10^3/uL (150-400); White Blood Cell Count 9.1 X10^3/uL (4.5-11.0)
[2023-10-17 20:55] LABS: Alanine Aminotransferase 17 IU/L (<35); Albumin 3.8 g/dL (3.5-5.0); Albumin Globulin Ratio 1.2 (1.0-2.8); Alkaline Phosphatase 42 U/L (38-126); Aspartate Aminotransferase 22 IU/L (14-36); BUN Creatinine Ratio 16.9 (6-22); Bilirubin Total 0.3 mg/dL (0.2-1.3); Blood Urea Nitrogen 14 mg/dL (7-17); Calcium 9.1 mg/dL (8.4-10.2); Carbon Dioxide 30 mmol/L (22-32); Chloride 102 mmol/L (98-107); Estimated Glomerular Filt Rate > 60 mL/min (>60); Globulin 3.1 g/dL (1.7-4.1); Glucose 86 mg/dL (70-100); HEMOLYSIS < 15 (0-50); Potassium 3.9 mmol/L (3.4-5.1); Sodium 137 mmol/L (137-145); Total Protein 6.9 g/dL (6.3-8.2)
--- NOTE | 2023-10-17 22:39 | ED_ITS ---
HPI - General Adult General Chief complaint: Urogenital-Female Stated complaint: Blood in urine, Lower ABD pain Time Seen by Provider: 10/17/23 19:25 Source: patient Mode of arrival: Family Vehicle History of Present Illness HPI narrative: 43-year-old woman who has a history of depression had pelvic surgery with a rectocele and urethral sling placed on September 20 at [facility]. She was concerned that she was having increasing pain and bleeding on October 04 seen by her outdoor studies professor who did not feel that she had a bladder infection. Blood work was done at that time. Over the last couple of days she is continued to have increasing bleeding that does not seem like it is menstrual bleeding, she is concerned that it may be coming from her urethra. She is having increasing pelvic pain and pressure. She denies no fever or chills. She has not been constipated. She contacted her outdoor studies professor who requested additional evaluation and suggested CT scan with concern for postop hematoma that may just simply be draining. Patient does not have any chest pain, orthopnea, dyspnea, cough or fever Related Data Home Medications Medication Instructions Recorded Confirmed escitalopram oxalate 10 mg tablet 10 mg PO DAILY 02/07/21 06/25/23 tretinoin 0.05 % topical cream 1 applic topical BEDTIME 02/07/21 06/25/23 memantine 5 mg tablet 5 mg PO QAM 02/16/22 06/25/23 bupropion HCl 150 mg 24 hr tablet, 150 mg PO QAM 06/25/23 06/25/23 extended release Previous Rx's Medication Instructions Recorded sumatriptan succinate 50 mg tablet See Rx Instructions PO .COMPLEX #9 06/25/23 (Imitrex) tabs Allergies Allergy/AdvReac Type Severity Reaction Status Date / Time No Known Drug Allergies Allergy Verified 02/21/22 10:10 Review of Systems Review of Systems Narrative: Pertinent positive and negative findings as per HPI Patient History Family History Father Age: 78 Hypertension Grandfather Age: 85 Heart disease Grandmother Age: 104 Parkinson's disease Mother Age: 72 Breast cancer Hypertension Social History Smoking Status: Never smoker Smoking Status: Never smoker Exam Initial Vital Signs Initial Vital Signs: Vital Signs Temperature 98.2 F 10/17/23 18:33 Pulse Rate 84 10/17/23 18:33 Respiratory Rate 18 02/14/24 18:33 Blood Pressure 133/84 10/17/23 18:33 Pulse Oximetry 100 10/17/23 18:33 Oxygen Delivery Method Room Air 10/17/23 18:33 General: Healthy appearing, in no acute distress. Able to give a complete and coherent history. Well-nourished well-developed HEENT: Moist mucous membranes, normal sclera with reactive pupils, Respiratory: Lungs are clear to auscultation, no wheezing no rales no rhonchi. Full and symmetrical air movement Cardiac: Regular rate and rhythm no murmurs no bruits Abdomen: Soft, mild pelvic tenderness but there is no rebound or guarding. I chose to not do a pelvic exam today Skin: Warm and dry, no rashes Neurologic: Grossly neurologically intact with no obvious asymmetries or abnormalities Extremities: No trauma, well perfused Psych: Cooperative, appropriate insight and affect Course Orders Ordered: ED Orders 10/17/23 17:21 Urine Culture Stat Urine Microscopic Stat 10/17/23 19:44 CT abdomen pelvis w con Stat 10/17/23 20:30 Complete Blood Count AUTO DIFF Stat Comprehensive Metabolic Panel Stat Ondansetron HCl (Ondansetron 4 Mg/2 Ml Inj) 4 mg IV NOW PRN PRN Reason: Nausea And Vomiting Last Admin: 10/17/23 20:28 Dose: 4 mg Documented By: JANUSZ Ondansetron HCl (Ondansetron 4 Mg Odt) 4 mg SL NOW PRN PRN Reason: Nausea And Vomiting Discontinued Medications Ketorolac Tromethamine (Ketorolac 30 Mg/Ml Vial) 15 mg IV NOW ONE Stop: 10/17/23 19:44 Last Admin: 10/17/23 20:28 Dose: 15 mg Documented By: JANUSZ Vital Signs Vital signs: Vital Signs - 8 hr 10/17/23 18:33 10/17/23 21:21 10/17/23 21:22 Temperature 98.2 F Pulse Rate 84 84 Respiratory Rate 18 Blood Pressure 133/84 139/74 Pulse Oximetry 100 98 Oxygen Delivery Method Room Air 10/17/23 21:22 10/17/23 21:30 10/17/23 21:30 Temperature Pulse Rate 79 74 Respiratory Rate 18 Blood Pressure 105/63 Pulse Oximetry 99 98 Oxygen Delivery Method Room Air 10/17/23 22:00 10/17/23 22:01 10/17/23 22:01 Temperature Pulse Rate 101 H 87 Respiratory Rate Blood Pressure 108/87 Pulse Oximetry 97 97 Oxygen Delivery Method 10/17/23 22:30 10/17/23 22:31 10/17/23 22:36 Temperature Pulse Rate 89 89 Respiratory Rate Blood Pressure 131/92 H Pulse Oximetry 98 98 Oxygen Delivery Method Room Air Medical Decision Making Lab Data 10/17/23 20:30 10/17/23 20:30 Labs: Lab Results 10/17/23 10/17/23 Range/Units 17:21 20:30 WBC 9.1 (4.5-11.0) X10^3/uL RBC 4.10 (4.0-5.2) X10^6/uL Hgb 12.9 (12.0-16.0) g/dL Hct 38.4 (36-46) % MCV 93.6 (80-100) fL MCH 31.4 (26-34) PG MCHC 33.5 (30-36) % RDW 13.0 (11.6-14.8) % Plt Count 251 (150-400) X10^3/uL Neut % (Auto) 58.3 (50-75) % Lymph % (Auto) 27.8 (25-40) % [place] % (Auto) 9.3 (3-14) % Eos % (Auto) 3.9 (2-4) % Baso % (Auto) 0.7 (0-2) % Neut # (Auto) 5300 (4539-5128) /uL Lymph # (Auto) 2500 (6582-7184) /uL [place] # (Auto) 800 (0-900) /uL Eos # (Auto) 400 (0-450) /uL Baso # (Auto) 100 (0-100) /uL Sodium 137 (137-145) mmol/L Potassium 3.9 (3.4-5.1) mmol/L Chloride 102 (98-107) mmol/L Carbon Dioxide 30 (22-32) mmol/L BUN 14 (7-17) mg/dL Creatinine 0.83 (0.52-1.04) mg/dL Estimated GFR > 60 (>60) mL/min BUN/Creatinine Ratio 16.9 (6-22) Glucose 86 (70-100) mg/dL Calcium 9.1 (8.4-10.2) mg/dL Total Bilirubin 0.3 (0.2-1.3) mg/dL AST 22 (14-36) IU/L ALT 17 (<35) IU/L Alkaline Phosphatase 42 (38-126) U/L Total Protein 6.9 (6.3-8.2) g/dL Albumin 3.8 (3.5-5.0) g/dL Globulin 3.1 (1.7-4.1) g/dL Albumin/Globulin Ratio 1.2 (1.0-2.8) Urine RBC 5-10/hpf H (0-5/HPF) Urine WBC 10-30/hpf H (0-5/HPF) Ur Squamous Epith Cells 5-10 /hpf H (0-5/HPF) Amorphous Sediment 1+ Urine Bacteria Moderate (10-30) H (None) Ur Culture Indicated? Specimen cultured Vol Urine Centrifuged 10ml (spun) Urine Dip Bedside Urine Glucose Negative Bedside Urine Bilirubin - Negative Bedside Urine Ketone +/- 5 Urine Specific [place] 1.015 Bedside Urine Occult Blood +++ Bedside Urine pH 7.0 Bedside Urine Protein - Negative Bedside Urine Urobilinogen - Negative Bedside Urine Nitrite - Negative Bedside Urine Leukocytes +++ 500 Esterase Point of care testing: Urine Dip Bedside Urine Glucose Negative Bedside Urine Bilirubin - Negative Bedside Urine Ketone +/- 5 Urine Specific [place] 1.015 Bedside Urine Occult Blood +++ Bedside Urine pH 7.0 Bedside Urine Protein - Negative Bedside Urine Urobilinogen - Negative Bedside Urine Nitrite - Negative Bedside Urine Leukocytes +++ 500 Esterase MDM Narrative Medical decision making narrative: CC: Recent rectocele and urethral sling now with vaginal and perhaps urethral bleeding Complicating co-morbidities: Recent surgery, Data collected from: patient Medical records reviewed: Patient lives in [facility] primary care notes from 2021 and on [facility] are reviewed Differential considered: Urinary tract infection, infected surgical site, surgical site breakdown, mobilizing hematoma Exam documented above, pertinent findings include: Minimal lower pelvic pain. Based on CT scan with probable seroma that is draining through the vaginal cuff I chose not to do a pelvic exam at this time. Lab Test results independently reviewed as above. Pertinent findings: CBC does not show leukocytosis or significant anemia Chemistries are reassuring Urinalysis shows red cells, white cells, squamous cells moderate bacteria it has been cultured Imaging studies independently reviewed: CT scan of the abdomen and pelvis as read by radiology IMPRESSION: Right lower pelvic sidewall fluid attenuating collection at the level of the vaginal cuff measuring up to 3.9 cm likely sequela of recent rectocele surgery. Finding is favored to represent postoperative seroma given lack of rim enhancement and presence of gas, however sterility cannot be fully assessed Approved by: Gema Quintanilla M.D. on 10/17/2023 at 21:17 Discussion: 43-year-old woman who is now almost 1 month postop rectocele and urethral sling who is having increasing bloody discharge she is unsure if this is from her urethra or vagina. She has not complaining of significant pain, fevers, smell. Her labs reassuring with no evidence of acute anemia or infection. CT scan suggests probable seroma if not hematoma along the right lower pelvic sidewall that is likely not an abscess. This assessment is based on both the CT scan findings, physical exam findings and laboratory studies. Reassurance is given. Her surgery was done at [facility] in the CT scan has been electronically transmitted to [facility] so actual films can be reviewed. She is given copies of the CT report as well as her blood work. Her next follow up appointment with her outdoor studies professor is in approximately a month. I recommended that she call her tomorrow let her know the results of the ER visit and see if she wanted to see her any sooner. At this time there is no evidence of infection, sepsis, significant surgical break down, need for additional imaging hospitalization or further treatment. She will be given a couple of tablets of Percocet to help with minor continued postop pain. She is aware of the constipating side effects and has stool softeners. We will follow up with her outdoor studies professor and return to the ER if symptoms are worse. Discharge Plan Departure Patient Disposition: Home Clinical Impression: Vaginal bleeding Post-operative complication Qualifiers: Surgical complication system/body Area: genitourinary Surgical complication type: seroma Activity Restrictions/Additional Instructions: Thank you for coming in Your evaluation suggests that there is a collection of fluid that likely is serous fluid as well as a little bit of blood that is draining from the top part of your vaginal incision. There does not appear to be any sign of infection or deeper abscess. These type of fluid collections are common after surgery. The fact that it is draining is actually reassuring. You do need to contact your outdoor studies professor. Please let them know that the CT scan itself has been electronically transmitted to the [facility]. I have given you copies of the written reports as well as the lab studies done today. Using 400 mg of ibuprofen (2 [id number] pills) and 1 Tylenol every 6 hours can be very helpful in controlling pain. For significant pain you can use 400 mg of ibuprofen and Percocet. This is a narcotic, can cause constipation which can make your symptoms worse. Please make sure you are drinking plenty of water and taking a stool softener if you choose to use the Percocet If you find that you are getting worse or develop any new symptoms, please feel free to return to the emergency department for further evaluation. Prescriptions: No Action escitalopram oxalate 10 mg tablet 10 mg PO DAILY tretinoin 0.05 % cream 1 applic topical BEDTIME bupropion HCl 150 mg tablet extended release 24 hr 150 mg PO QAM sumatriptan succinate [Imitrex] 50 mg tablet See Rx Instructions PO .COMPLEX Qty: 9 0RF Rx Instructions: take 1/2 tab at onset of headache; if no relief may repeat 1 tab after 2 hrs; memantine 5 mg tablet 5 mg PO QAM Referrals: Corinne Amado PA-C [Primary Care Provider] - Stand Alone Forms: Patient Portal/API
[2023-10-17] MEDS: OXYCODONE/APAP 5/325 PREPACK 1 BOTTLE MISC (22:59)
== END 2023-10-17 23:06 | disposition home or self-care (01) ==
PROVIDERS: Emergency Provider Emergency Medicine; PCP Physician Assistant Medical
DX: N93.9 Abnormal uterine and vaginal bleeding, unspecified (principal); Z98.890 Other specified postprocedural states
CPT/HCPCS: 36415; 74177; 80053; 81003; 81015; 85025; 87086; 87147; 96374; 96375; 99284; J1885; J2405

== ENCOUNTER → 2024-04-29 12:00 | Outpatient (CLI) | payer OTHER, SELFPAY ==
[2024-04-29 19:39] LABS: Vitamin D 25 Hydroxy (D3) 46.7 ng/mL (30.0-100.0)
== END ==
PROVIDERS: PCP Family Medicine; Visit Provider Registered Nurse
DX: Z91.89 Other specified personal risk factors, not elsewhere classified (principal); Z80.3 Family history of malignant neoplasm of breast
CPT/HCPCS: 82306